=== PATIENT | female | born 1970 | race Caucasian/White ===

== ENCOUNTER 2024-07-17 09:31 | Outpatient (CLI) | payer BC | END 2024-07-17 09:32 | disposition home or self-care (01) | LOC: BICMRI 09:31 | PROVIDERS: ATTEND Obstetrics & Gynecology | DX: R92.333 Mammographic heterogeneous density, bilateral breasts (principal); Z53.9 Procedure and treatment not carried out, unspecified reason | CPT/HCPCS: A9577; C8908 ==